=== PATIENT | male | born 1970 | race Caucasian/White ===

== ENCOUNTER 2017-05-13 11:04 | Emergency (ER) | payer BC, OTHER ==
[~2017-05-13] VITALS: Ht 172.7 cm; Wt 77.1 kg
[~2017-05-13 11:04] MED LIST: ATR80PT PO; CYCL10TA29 PO; ENOX100D5 SQ; INSU100C14 SQ; LANI SUBQ; LISI20TA29 PO; LOR5/325 PO; NOVOLINRPT SQ; NPH,100V12 SQ; ONDA4TAB PO; OXYC-865 PO; WARF5TAB23 PO
--- NOTE | 2017-05-13 11:11 | ER Report ---
History and Physical Time Seen By MD: 11:11 Hx. of Stated Complaint: PATIENT IS REPORTING DENTAL PAIN. HIS FAMILY MEMBER REPORTS THAT HE HAS TAKEN 20 TABLETS OF 500MG TYLENOL IN THE LAST 24 HOURS HPI/ROS CHIEF COMPLAINT: Unintentional overdose HISTORY OF PRESENT ILLNESS: Is a 46-year-old male who presents to the emergency Department from urgent care for an unintentional Tylenol overdose. Patient states that he's had some dental pain over the last couple weeks, and has been taking Tylenol but in the last 24 hours he's taken approximately 20 of the 500 mg Tylenol tablets. He took 2 extra strength Tylenol at 8:00 this morning. Went to urgent care to get some antibiotics for his dental pain and they reported that he taken so many Tylenol tablets that they were concerned and sent him to the emergency department for evaluation. Patient arrives with his cousin. Patient has significant dental caries only 6 teeth remaining and he has gingivitis, and dental pain along the left lower teeth. Patient denies chills or aches, headaches, chest pain or shortness of breath. Patient is having some nausea, no diarrhea. REVIEW OF SYSTEMS: Constitutional: No fever, no chills. Eyes: No discharge. ENT: No sore throat. Cardiovascular: No chest pain, no palpitations. Respiratory: No cough, no shortness of breath. Gastrointestinal: As above. Genitourinary: No hematuria. Musculoskeletal: No back pain. Skin: No rashes. Neurological: No headache. Dental: As above. Allergies: Coded Allergies: No Known Drug Allergies (Unverified , 12/08/16) Home Meds Active Scripts Hydrocodone Bit/Acetaminophen (HYDROCODON-ACETAMINOPHEN 5-325) 1 Each Tablet, 1 EACH PO Q4-6H Y for PAIN, #12 TAB Prov:MARILYN MAGANA SYSTEM MANAGER-BC 05/13/17 Amoxicillin 500 Mg Tab (AMOXICILLIN 500 MG TAB) 500 Mg Tablet, 2 TAB PO Q12H, # 20 TAB Prov:MARILYN MAGANA [facility] 05/13/17 Reported Medications Cholecalciferol (Vitamin D3) (VITAMIN D3) 1,000 Unit Tablet, 1000 UNIT PO QDAY, TAB 05/13/17 Lisinopril (LISINOPRIL) 40 Mg Tablet, 40 MG PO QDAY, TAB 05/13/17 Atorvastatin Calcium (LIPITOR) 40 Mg Tablet, 1 TAB PO QDAY, TAB 05/13/17 Clonidine (CLONIDINE 0.1 MG/DAY) 1 Each Patch.tdwk, 1 EACH TD BID, PATCH.WK 05/13/17 Nph, Human Insulin Isophane (NOVOLIN N) 100 Unit/1 Ml Vial, 12 UNIT SQ BIDBS, VIAL 07/10/13 Insulin Regular, Human (NOVOLIN R) 100 Unit/1 Ml Vial, UNIT SQ, VIAL PER SLIDING SCALE 07/10/13 Lisinopril (LISINOPRIL) 20 Mg Tablet, 40 MG PO QDAY 07/08/13 Discontinued Reported Medications Oxycodone Hcl/Acetaminophen (PERCOCET 5-325 MG TABLET) 1 Each Tablet, 1-2 EACH PO Q6H Y for PAIN, #20 07/10/13 Warfarin Sodium (WARFARIN SODIUM) 5 Mg Tablet, 5 MG PO QHS 07/10/13 Discontinued Scripts Hydrocodone Bit/Acetaminophen (HYDROCODON-ACETAMINOPHEN 5-325) 1 Each Tablet, 1 EACH PO Q4-6H Y for PAIN, #12 TAB 0 Refills TAKE ONE TABLET BY MOUTH EVERY 4-6 HOURS NEEDED FOR PAIN Prov:MESSI MARSHALL MD 01/01/14 Ondansetron (ZOFRAN ODT) 4 Mg Tab.rapdis, 4 MG PO Q6H Y for NAUSEA/VOMITING, # 20 TAB 0 Refills Prov:MESSI MARSHALL MD 01/01/14 Cyclobenzaprine Hcl (CYCLOBENZAPRINE HCL) 10 Mg Tablet, 10 MG PO TID Y for MUSCLE SPASMS, #30 TAB 0 Refills TAKE 1 TABLET BY MOUTH THREE TIMES A DAY Prov:MESSI MARSHALL MD 01/01/14 Past Medical/Surgical History A shunt has a past medical and surgical history of hypertension, pulmonary embolus, wears glasses, type I diabetes, poor dental health, multiple dental caries and appendectomy. Reviewed Nurses Notes: Yes Hx Smoking: Yes Smoking Status: Current: Every Day Smoker Exposure to Second Hand Smoke?: No Hx Substance Use Disorder: Yes Hx Alcohol Use: Yes Constitutional Vital Sign - Last 24 Hours 05/13/17 05/13/17 05/13/17 05/13/17 11:07 11:07 11:09 11:14 Temp 98.7 Pulse 55 58 66 Resp 24 B/P (MAP) 182/95 182/95 (124) Pulse Ox 94 95 93 O2 Delivery Room Air 05/13/17 05/13/17 05/13/17 05/13/17 11:15 11:29 11:30 11:34 Pulse 80 65 B/P (MAP) 172/98 (122) 174/91 (118) Pulse Ox 90 92 05/13/17 05/13/17 05/13/17 05/13/17 11:39 11:44 11:48 11:49 Pulse 62 70 62 Pulse Ox 94 90 98 O2 Flow Rate 2.0 05/13/17 05/13/17 05/13/17 05/13/17 12:00 12:04 12:15 12:26 Pulse 69 B/P (MAP) 176/88 (117) 165/94 (117) 178/89 (118) Pulse Ox 99 Intake and Output 05/13/17 05/13/17 05/14/17 15:00 23:00 07:00 Intake Total 1000 ml Balance 1000 ml Physical Exam General Appearance: The patient is alert, has no immediate need for airway protection and no signs of toxicity. Eyes: Pupils equal and round no pallor or injection. ENT, Mouth: Mucous membranes are moist. Significant poor dentition. Only has 6 lower teeth remaining. Erythema along the left lower gumline. Respiratory: There are no retractions, lungs are clear to auscultation. Cardiovascular: Regular rate and rhythm, no murmurs, clicks or rubs. Gastrointestinal: Abdomen is soft and non tender, no masses, bowel sounds normal. Neurological: Alert and oriented 4. Moving all x-rays. Following. No focal neuro deficits. Skin: Warm and dry, no rashes. Musculoskeletal: Neck is supple non tender. Extremities are nontender, nonswollen and have full range of motion. DIFFERENTIAL DIAGNOSIS: After history and physical exam differential diagnosis was considered for unintentional Tylenol overdose, dental caries, gingivitis, dental abscess. Medical Decision Making Data Points Result Diagram: 05/13/17 1110 05/13/17 1110 Laboratory Hematology Test 05/13/17 11:10 05/13/17 11:35 Red Blood Count 5.27 M/uL (4.00-5.60) Mean Corpuscular Volume 96.3 fL (80.0-96.0) Mean Corpuscular Hemoglobin 32.6 pg (26.0-33.0) Mean Corpuscular Hemoglobin Concent 33.8 g/dL (32.0-36.0) Red Cell Distribution Width 13.1 % (11.5-14.5) Mean Platelet Volume 8.1 fL (7.2-11.1) Neutrophils (%) (Auto) 88.3 % (39.4-72.5) Lymphocytes (%) (Auto) 6.9 % (17.6-49.6) Monocytes (%) (Auto) 3.7 % (4.1-12.4) Eosinophils (%) (Auto) 0.3 % (0.4-6.7) Basophils (%) (Auto) 0.8 % (0.3-1.4) Nucleated RBC Relative Count (auto) 0.0 /100WBC Neutrophils # (Auto) 11.0 K/uL (2.0-7.4) Lymphocytes # (Auto) 0.9 K/uL (1.3-3.6) Monocytes # (Auto) 0.5 K/uL (0.3-1.0) Eosinophils # (Auto) 0.0 K/uL (0.0-0.5) Basophils # (Auto) 0.1 K/uL (0.0-0.1) Nucleated RBC Absolute Count (auto) 0.00 K/uL Sodium Level 134 mmol/L (137-145) Potassium Level 5.0 mmol/L (3.5-5.0) Chloride Level 101 mmol/L (98-107) Carbon Dioxide Level 23 mmol/L (22-30) Blood Urea Nitrogen 26 mg/dl (9-21) Creatinine 2.60 mg/dl (0.66-1.25) Glomerular Filtration Rate Calc 26.8 Random Glucose 298 mg/dl (75-110) Calcium Level 8.5 mg/dl (8.4-10.2) Magnesium Level 1.7 mg/dl (1.7-2.2) Total Bilirubin 0.7 mg/dl (0.2-1.3) Aspartate Amino Transf (AST/SGOT) 27 U/L (0-35) Alanine Aminotransferase (ALT/SGPT) 34 U/L (0-56) Alkaline Phosphatase 67 U/L (0-126) Total Protein 6.2 gm/dl (6.3-8.2) Albumin 3.3 g/dl (3.5-5.0) Thyroid Stimulating Hormone (TSH) 1.76 uIU/ml (0.46-4.68) Salicylates Level < 10 mg/L Salicylate Last Dose Date unk Acetaminophen Level 17 ug/ml Serum Alcohol < 10 mg/dl Urine Color Yellow Urine Clarity Clear Urine pH 5.0 pH (4.8-9.5) Urine Specific [place] 1.031 Urine Protein 500 mg/dL (NEGATIVE) Urine Glucose (UA) 500 mg/dL (NEGATIVE) Urine Ketones 20 mg/dL (NEGATIVE) Urine Blood Negative (NEGATIVE) Urine Nitrite Negative (NEGATIVE) Urine Bilirubin Negative (NEGATIVE) Urine Urobilinogen Negative mg/dL (0.2-1.9) Urine Leukocyte Esterase Negative (NEGATIVE) Urine RBC 8 /HPF (0-2/HPF) Urine WBC 2 /HPF (0-5/HPF) Urine Squamous Epithelial Cells Few /LPF (</=FEW) Urine Bacteria Negative /HPF (NONE-FEW) Urine Hyaline Casts Few /LPF (NONE-FEW) Urine Granular Casts Few /LPF (NONE) Urine Mucus None /HPF (NONE-FEW) Urine Opiates Screen Negative Urine Barbiturates Screen Negative Ur Tricyclic Antidepressants Screen Positive Urine Phencyclidine Screen Negative Urine Amphetamines Screen Negative Urine Benzodiazepines Screen Negative Urine Cocaine Screen Negative Urine Cannabinoids Screen Negative Chemistry Test 05/13/17 11:10 05/13/17 11:35 White Blood Count 12.5 k/uL (4.5-11.0) Red Blood Count 5.27 M/uL (4.00-5.60) Hemoglobin 17.1 g/dL (14.0-18.0) Hematocrit 50.7 % (42.0-52.0) Mean Corpuscular Volume 96.3 fL (80.0-96.0) Mean Corpuscular Hemoglobin 32.6 pg (26.0-33.0) Mean Corpuscular Hemoglobin Concent 33.8 g/dL (32.0-36.0) Red Cell Distribution Width 13.1 % (11.5-14.5) Platelet Count 301 K/uL (150-450) Mean Platelet Volume 8.1 fL (7.2-11.1) Neutrophils (%) (Auto) 88.3 % (39.4-72.5) Lymphocytes (%) (Auto) 6.9 % (17.6-49.6) Monocytes (%) (Auto) 3.7 % (4.1-12.4) Eosinophils (%) (Auto) 0.3 % (0.4-6.7) Basophils (%) (Auto) 0.8 % (0.3-1.4) Nucleated RBC Relative Count (auto) 0.0 /100WBC Neutrophils # (Auto) 11.0 K/uL (2.0-7.4) Lymphocytes # (Auto) 0.9 K/uL (1.3-3.6) Monocytes # (Auto) 0.5 K/uL (0.3-1.0) Eosinophils # (Auto) 0.0 K/uL (0.0-0.5) Basophils # (Auto) 0.1 K/uL (0.0-0.1) Nucleated RBC Absolute Count (auto) 0.00 K/uL Glomerular Filtration Rate Calc 26.8 Calcium Level 8.5 mg/dl (8.4-10.2) Magnesium Level 1.7 mg/dl (1.7-2.2) Total Bilirubin 0.7 mg/dl (0.2-1.3) Aspartate Amino Transf (AST/SGOT) 27 U/L (0-35) Alanine Aminotransferase (ALT/SGPT) 34 U/L (0-56) Alkaline Phosphatase 67 U/L (0-126) Total Protein 6.2 gm/dl (6.3-8.2) Albumin 3.3 g/dl (3.5-5.0) Thyroid Stimulating Hormone (TSH) 1.76 uIU/ml (0.46-4.68) Salicylates Level < 10 mg/L Salicylate Last Dose Date unk Acetaminophen Level 17 ug/ml Serum Alcohol < 10 mg/dl Urine Color Yellow Urine Clarity Clear Urine pH 5.0 pH (4.8-9.5) Urine Specific [place] 1.031 Urine Protein 500 mg/dL (NEGATIVE) Urine Glucose (UA) 500 mg/dL (NEGATIVE) Urine Ketones 20 mg/dL (NEGATIVE) Urine Blood Negative (NEGATIVE) Urine Nitrite Negative (NEGATIVE) Urine Bilirubin Negative (NEGATIVE) Urine Urobilinogen Negative mg/dL (0.2-1.9) Urine Leukocyte Esterase Negative (NEGATIVE) Urine RBC 8 /HPF (0-2/HPF) Urine WBC 2 /HPF (0-5/HPF) Urine Squamous Epithelial Cells Few /LPF (</=FEW) Urine Bacteria Negative /HPF (NONE-FEW) Urine Hyaline Casts Few /LPF (NONE-FEW) Urine Granular Casts Few /LPF (NONE) Urine Mucus None /HPF (NONE-FEW) Urine Opiates Screen Negative Urine Barbiturates Screen Negative Ur Tricyclic Antidepressants Screen Positive Urine Phencyclidine Screen Negative Urine Amphetamines Screen Negative Urine Benzodiazepines Screen Negative Urine Cocaine Screen Negative Urine Cannabinoids Screen Negative Toxicology Test 05/13/17 11:10 05/13/17 11:35 Salicylates Level < 10 mg/L Salicylate Last Dose Date unk Acetaminophen Level 17 ug/ml Serum Alcohol < 10 mg/dl Urine Opiates Screen Negative Urine Barbiturates Screen Negative Ur Tricyclic Antidepressants Screen Positive Urine Phencyclidine Screen Negative Urine Amphetamines Screen Negative Urine Benzodiazepines Screen Negative Urine Cocaine Screen Negative Urine Cannabinoids Screen Negative Urinalysis Test 05/13/17 11:35 Urine Color Yellow Urine Clarity Clear Urine pH 5.0 pH (4.8-9.5) Urine Specific [place] 1.031 Urine Protein 500 mg/dL (NEGATIVE) Urine Glucose (UA) 500 mg/dL (NEGATIVE) Urine Ketones 20 mg/dL (NEGATIVE) Urine Blood Negative (NEGATIVE) Urine Nitrite Negative (NEGATIVE) Urine Bilirubin Negative (NEGATIVE) Urine Urobilinogen Negative mg/dL (0.2-1.9) Urine Leukocyte Esterase Negative (NEGATIVE) Urine RBC 8 /HPF (0-2/HPF) Urine WBC 2 /HPF (0-5/HPF) Urine Squamous Epithelial Cells Few /LPF (</=FEW) Urine Bacteria Negative /HPF (NONE-FEW) Urine Hyaline Casts Few /LPF (NONE-FEW) Urine Granular Casts Few /LPF (NONE) Urine Mucus None /HPF (NONE-FEW) ED Course/Re-evaluation Clinical Indication for ER IV: Hydration, IV Access ED Course The patient was admitted to a room. Extremities: Obtained. Differential diagnoses were considered. An IV was started. A 1 liter normal saline bolus was given. 4mg IV Zofran was given, 4mg IV morphine. A CBC, CMP, drug screen, Tylenol and salicylate levels were obtained. We also contacted poison control as well concerning the patient had a Tylenol overdose. Patient had a very mild leukocytosis. BUN and creatinine 26 and 2.6 I compared these to 2015 labs studies and they are very similar to what he's had the past. Patient does have known kidney disease, he states secondary to his diabetes. Blood sugar 298. I did try a dental block on the left lower tooth patient did not tolerate very well. The patient's Tylenol level was 17, the cutoff for treatment was 20. On the other lab studies were unremarkable. I did review these with the patient and his cousin they were both pleased with the lab studies. I did discuss appropriate Tylenol use with the patient and his cousin. A prescription for amoxicillin was sent patient's pharmacy as well as the hydrocodone. Patient was able to keep his dental appointment today at 1:15. The patient and his cousin were given very detailed information on how to manage his medications and proper dosing. The patient and his cousin had no other questions or concerns and were discharged. Decision to Disposition Date: May 13, 2017 Decision to Disposition Time: 12:22 Depart Departure Latest Vital Signs Vital Signs Date Time Temp Pulse Resp B/P (MAP) Pulse Ox O2 Delivery O2 Flow Rate FiO2 05/13/17 12:26 178/89 (118) 05/13/17 12:04 69 99 05/13/17 11:48 2.0 05/13/17 11:07 98.7 24 Room Air Impression: Primary Impression: Pain, dental Condition: Improved Disposition: HOME OR SELF-CARE New Scripts Hydrocodone Bit/Acetaminophen (HYDROCODON-ACETAMINOPHEN 5-325) 1 Each Tablet 1 EACH PO Q4-6H Y for PAIN, #12 TAB Prov: MARILYN MGAANA SYSTEM MANAGER-BC 05/13/17 Amoxicillin 500 Mg Tab (AMOXICILLIN 500 MG TAB) 500 Mg Tablet 2 TAB PO Q12H, #20 TAB Prov: MARILYN MAGANA SYSTEM MANAGER-BC 05/13/17 Patient Instructions: Dental Caries (DC) Additional Instructions: Drink plenty of fluids. Get plenty of rest. Go directly to the dentist. Take the antibiotic as prescribed. You can Take 2- 500mg Tylenol tablets every 6 hours as needed for pain. You can take the Hydrocodone too, but alternate with the Tylenol as the hydrocodone has Tylenol in it. Follow up with your dentist, this is the only definitive way to resolve your dental pain. May return to the Ed for worsening symptoms. MARILYN MAGANA SYSTEM MANAGER-BC May 13, 2017 11:11
[2017-05-13] MEDS ORDERED: LISI-374 PO (11:17)
[2017-05-13] MEDS ORDERED: ATOR40TA24 PO (11:17)
[2017-05-13] MEDS ORDERED: CHOL10005 PO (11:17)
[2017-05-13] MEDS ORDERED: CLON1PAT19 TD (11:17)
[2017-05-13] MEDS ORDERED: NS(*) 0.9% 1000 ML BAG 1,000 ML IV ONE (11:20)
[2017-05-13 11:29] LABS: PLATELET COUNT, AUTOMATED 301 K/uL (150-450)
[2017-05-13] MEDS ORDERED: ONDANSETRON 4 MG/2 ML VIAL IVP ONE (11:35)
[2017-05-13] MEDS ORDERED: MORPHINE 4 MG/ML SDV IVP ONE (11:40)
[2017-05-13] MEDS ORDERED: AMOX500T10 PO (12:20)
[2017-05-13] MEDS ORDERED: HYDR-385 PO (12:20)
[2017-05-13 12:26] VITALS: BP 178/89
== END 2017-05-13 12:33 | disposition home or self-care (01) ==
LOC: ER 11:09
DX: K08.89 Other specified disorders of teeth and supporting structures (principal); I10 Essential (primary) hypertension; E10.9 Type 1 diabetes mellitus without complications
CPT/HCPCS: 80305; 80320; 80329; 81001; 83735; 84443; 85025; 96361; 96374; 96375; 99284; J2270; J2405; J7030; 82040; 82247; 82310; 82374; 82435; 82565; 82947; 84075; 84132; 84155; 84295; 84450; 84460; 84520

== ENCOUNTER → 2018-07-30 | Outpatient (CLI) | payer BC ==
[~2018-07-30] MED LIST changes: +AMOX500T10 PO; +ATOR40TA24 PO; +CHOL10005 PO; +CLON1PAT19 TD; +HYDR-385 PO; +LISI-374 PO
--- NOTE | 2018-07-30 14:17 | RADIOLOGY IMAGING REPORT ---
FACILITY: [facility] PATIENT NAME: Kyleigh Helton : 1970 MR: [id number] V: [id number] EXAM DATE: ORDERING PHYSICIAN: ADINA DELACRUZ TECHNOLOGIST: [place] [facility] [place] Kyleigh Helton : 1970 Visit/Account:[id number] Date of Sevice: 07/30/2018 EXAMINATION: PA and Lateral Chest 07/30/2018 1:30 PM HISTORY: Tobacco use. Hyperlipidemia. Diabetes mellitus. Hypertension. COMPARISON: 01/01/2014 FINDINGS: Cardiomediastinal contours: Normal Lungs and pleura: Stable minimal lingular scarring. No acute finding. Bones/soft tissues: Normal IMPRESSION: No acute cardiopulmonary abnormality. Report Dictated By: Dimitry Garcia MD at 07/30/2018 2:11 PM Report E-Signed By: Dimitry Garcia MD at 07/30/2018 2:13 PM WSN:[id number]
--- NOTE | 2018-07-30 14:30 | RADIOLOGY IMAGING REPORT ---
FACILITY: [facility] PATIENT NAME: Kyleigh Helton : 1970 MR: [id number] V: [id number] EXAM DATE: ORDERING PHYSICIAN: ADINA DELACRUZ TECHNOLOGIST: Location: [facility] Patient: Kyleigh Helton : 1970 Visit/Account:[id number] Date of Sevice: 07/30/2018 EXAMINATION: CT Abdomen and Pelvis Without Contrast 07/30/2018 2:00 PM HISTORY: Pending kidney surgery. Hypertension. Hyperlipidemia. Current tobacco use. TECHNIQUE: Renal stone protocol - Spiral scan was obtained through the kidneys, ureters and bladder without intravenous contrast. One of the following dose optimization techniques was utilized in the performance of this exam: Autom ated exposure control; adjustment of the mA and/or kV according to the patient's size; or use of an i terative reconstruction technique. Specific details can be referenced in the facility's radiology C T exam operational policy. COMPARISON STUDIES: 01/01/2014. FINDINGS: Right kidney and ureter: Unremarkable unenhanced renal cortical contours. No kidney stone or obstruc tion. Left kidney and ureter: Rounded hypodense medial cortical structure measures 1.5 x 1.5 x 1.9 cm, mild ly grown from previous.. No kidney stone or obstruction. Bladder: No mass or stone. Liver / biliary: Hypodense lesion in the anterolateral aspect of segment 3 and the liver measures 2.9 x 2.0 x 2.1 cm, in retrospect present on the previous and unchanged and presumably benign, likely he mangioma or possible cyst. Pancreas: negative Spleen: Incidental tiny anterior accessory splenule. Adrenal glands: negative Retroperitoneum: negative Pelvic structures: Prostate is not substantially enlarged. Bowel / peritoneum / mesenteries: Mild diverticulosis of the colon. No acute bowel finding. Rounded peripherally calcified 1.2 cm mesenteric nodule to left of midline in the lower abdomen is a bit mob ile since the prior but has a benign appearance and may be an area of fatty necrosis along the omentu m. Vessels: Atherosclerosis Musculoskeletal / Body wall: Mild degenerative spurring in the spine. Lymph node assessment: negative Lower chest: Bibasilar scarring most notably within the lingula. IMPRESSION: 1. Rounded hypodense 1.9 cm structure in the medial left kidney. Cyst would be favored but this is incompletely assessed without contrast. 2. Stable hypodense left lobe liver lesion comparing with 2014, presumably benign. Report Dictated By: Dimitry Garcia MD at 07/30/2018 2:13 PM Report E-Signed By: Dimitry Garcia MD at 07/30/2018 2:26 PM WSN:[id number]
== END ==
LOC: US 00:56
PROVIDERS: ATTEND Nurse Practitioner Family
DX: I35.1 Nonrheumatic aortic (valve) insufficiency (principal); I34.0 Nonrheumatic mitral (valve) insufficiency; I37.2 Nonrheumatic pulmonary valve stenosis with insufficiency; R93.422 Abnormal radiologic findings on diagnostic imaging of left kidney; R93.2 Abnormal findings on diagnostic imaging of liver and biliary tract
CPT/HCPCS: 71046; 74176; 93306

== ENCOUNTER → 2018-08-26 | Outpatient (CLI) | payer BC | LOC: RESP 00:28 | PROVIDERS: ATTEND Nurse Practitioner Family | DX: E78.5 Hyperlipidemia, unspecified (principal); E10.9 Type 1 diabetes mellitus without complications; N18.4 Chronic kidney disease, stage 4 (severe); I10 Essential (primary) hypertension; Z72.0 Tobacco use | CPT/HCPCS: 93017; 93350 ==